=== PATIENT | male | born 1975 | race Hispanic/Latino ===

== ENCOUNTER 2024-07-21 22:17 | Emergency (ER) | payer OTHER, SELFPAY ==
[2024-07-21 22:22] VITALS: BP 153/86; PULSE 66; RESP 16; TEMP 36.6; O2SAT 100
--- NOTE | 2024-07-21 23:35 | ED_ITS ---
HPI - Wound/Laceration General Chief Complaint: Wound/Laceration Stated Complaint: R thumb lac Time Seen by Provider: 07/21/24 22:51 Source: patient and family Mode of arrival: ambulatory Limitations: no limitations and language barrier History of Present Illness HPI narrative: Patient is a 49 year old male who presents the ED with report of a laceration to his right thumb. Patient is primarily Turkmen-speaking. Family member at bedside feels comfortable translating. [employer] director was offered and declined. Patient works at [employer] and was cleaning a grill with his hand caught caught on the side of the grill, causing a laceration to his outer right thumb. Denies any other injuries. Denies significant pain. Denies numbness. Tetanus updated. Related Data Allergies Allergy/AdvReac Type Severity Reaction Status Date / Time No Known Allergies Allergy Verified 07/21/24 23:53 Review of Systems Review of Systems: All systems reviewed & are unremarkable except as noted in HPI. All systems reviewed & are unremarkable except as noted in HPI and below Exam Narrative: GENERAL: Well appearing, well-nourished, non-toxic, in no acute distress. HEAD: Normocephalic, atraumatic. RESPIRATORY: Airway patent, respirations nonlabored. CARDIOVASCULAR: Regular rate and rhythm MUSCULOSKELETAL: Moves all extremities. No gross deformities. Small triangular shaped skin avulsion to radial edge of R thumb without active bleeding. No significant tenderness. SKIN: Warm, dry, normal color. NEURO: A&O X3. Speech clear. No ataxic movements. PSYCHIATRIC: Appropriate mood and affect. Normal interaction. Course Vital Signs Vital signs: Vital Signs Temperature 97.8 F 07/21/24 22:22 Pulse Rate 66 07/21/24 22:22 Respiratory Rate 16 07/21/24 22:22 Blood Pressure 153/86 H 07/21/24 22:22 Pulse Oximetry 100 07/21/24 22:22 Oxygen Delivery Room Air 07/21/24 22:22 Temperature 97.8 F 07/21/24 22:22 Pulse Rate 66 07/21/24 22:22 Respiratory Rate 16 07/21/24 22:22 Blood Pressure 153/86 H 07/21/24 22:22 Pulse Oximetry 100 07/21/24 22:22 Oxygen Delivery Room Air 07/21/24 22:22 MDM - Wound/Laceration MDM Narrative Medical decision making narrative: Exam consistent with skin avulsion. No repair required. Wound was cleansed and bandaged. Tetanus status was updated in the ED. Patient given wound care instructions and reasons to return. Medical Records Attestation: I reviewed the patient's medical records. Discharge Plan Discharge Clinical Impression: Avulsion of skin Patient Disposition: Home, Self-Care Condition: Stable Instructions: Antibiotic Form, Skin Avulsion (ED), Skin Adhesive Care (ED) Additional Instructions: Keep wound bandaged whenever using your hands. Change bandage 1-2 times per day. Wash wound with simple soap and water, but do not scrub. You may apply an antibiotic ointment to the wound to help with healing. Return to the ED if you experience uncontrolled bleeding, fever, chills, pus-like drainage, or redness/swelling/warmth surrounding the wound, as these could be signs of an infection. Patient Language: Turkmen Follow-up/Referrals: UNKNOWN,DOCTOR [Primary Care Provider] - Time of Disposition: 23:39
[2024-07-21] MEDS: TETANUS,DIPHTHERIA,AC PERTUSSIS ADULT (0.5 ML) BOOSTRIX IM (23:54)
== END 2024-07-21 23:59 | disposition home or self-care (01) ==
PROVIDERS: Emergency Provider Physician Assistant
DX: S61.011A Laceration without foreign body of right thumb without damage to nail, initial encounter (principal); Z23 Encounter for immunization; W26.8XXA Contact with other sharp object(s), not elsewhere classified, initial encounter; Y93.G1 Activity, food preparation and clean up
CPT/HCPCS: 90471; 90715; 99282